=== PATIENT | male | born 1970 | race Two or more races ===

== ENCOUNTER 2021-08-21 16:32 | Inpatient (IN) | payer BC, OTHER ==
[~2021-08-21] VITALS: Ht 170.2 cm; Wt 124.7 kg
[2021-08-21] MEDS ORDERED: ENOXAPARIN SOD 100 MG/1 ML SYRINGE SC ONE (20:15)
[2021-08-21 21:00] LABS: Basophils # (auto) 0.1 10 ^3/uL (0-0.2); Basophils % (auto) 0.6 % (0.0-2.0); Eosinophils # (auto) 0.1 10 ^3/uL (0-0.8); Eosinophils % (auto) 0.8 % (0.0-7.0); Hemoglobin 16.5 g/dL (13.5-17.5); Lymphocytes % (auto) 22.3 % (10.0-50.0); Mean Corpuscular Hgb Conc. 33.6 g/dL (32.0-36.0); Mean Corpuscular Volume 86.3 fL (80.0-100.0); Monocytes # (auto) 1.2 10 ^3/uL (0-1.3); Monocytes % (auto) 8.7 % (0.0-12.0); Neutrophils # (auto) 9.1 10 ^3/uL (1.6-8.6); Neutrophils % (auto) 67.6 % (37.0-80.0); Nucleated Red Blood Cells % 0.7 %; Red Blood Cells 5.67 10^6/uL (4.5-5.90); Red Cell Distribution Width 12.4 % (11.8-14.3); White Blood Cell 13.5 10^3/uL (4.4-10.8)
[2021-08-21 21:05] LABS: Potassium 4.3 mmol/L (3.5-5.1)
[2021-08-21 21:11] LABS: Albumin 3.9 g/dL (3.4-5.0); BUN/Creatinine Ratio 17.4; Bilirubin, Total 0.4 mg/dL (0.2-1.0); Total Protein 8.8 g/dL (6.4-8.2)
[2021-08-22] MEDS ORDERED: ONDANSETRON HCL 4 MG/2 ML VIAL IV PRN (08:30)
[2021-08-22] MEDS ORDERED: MORPHINE SULFATE INJECTION 2 MG/ML SYRG IV PRN (08:30)
[2021-08-22] MEDS ORDERED: NIFEdipine ER 30 MG TAB PO ONE (08:30)
[2021-08-22] MEDS ORDERED: ACETAMINOPHEN 325 MG TAB PO PRN ×2 (08:30)
[2021-08-22] MEDS ORDERED: NITROGLYCERIN 0.4 MG SL TAB SL PRN (08:30)
[2021-08-22] MEDS ORDERED: HEPARIN SODIUM (PORCINE) 5000 UNITS/ML 1ML VIAL IV ONE (08:45)
[2021-08-22] MEDS ORDERED: HEPARIN DRIP/D5W 100UNITS/ML 250 ML IV SCH (09:00)
[2021-08-22 09:47] LABS: Basophils # (auto) 0.1 10 ^3/uL (0-0.2); Basophils % (auto) 0.6 % (0.0-2.0); Eosinophils # (auto) 0 10 ^3/uL (0-0.8); Eosinophils % (auto) 0.2 % (0.0-7.0); Hematocrit 46.8 % (41.0-53.0); Hemoglobin 15.7 g/dL (13.5-17.5); Lymphocytes # (auto) 2.1 10 ^3/uL (0.4-5.4); Lymphocytes % (auto) 18.3 % (10.0-50.0); Mean Corpuscular Hemoglobin 28.9 pg (28.0-32.0); Mean Corpuscular Hgb Conc. 33.6 g/dL (32.0-36.0); Monocytes # (auto) 0.7 10 ^3/uL (0-1.3); Monocytes % (auto) 5.9 % (0.0-12.0); Neutrophils # (auto) 8.5 10 ^3/uL (1.6-8.6); Nucleated Red Blood Cells % 0.1 %; Red Blood Cells 5.44 10^6/uL (4.5-5.90); Red Cell Distribution Width 12.9 % (11.8-14.3); White Blood Cell 11.3 10^3/uL (4.4-10.8)
[2021-08-22 11:15] LABS: INR 1.05 (0.9-1.15); Partial Thromboplastin Time 31.6 sec (23.6-33.0)
[2021-08-22 11:28] LABS: INR 1.06 (0.9-1.15)
[2021-08-22] MEDS ORDERED: METOPROLOL TARTRATE 50 MG TAB PO ONE (12:15)
[2021-08-22] MEDS ORDERED: IOHEXOL 350 MG/ML 100ML IJ ONE (12:32)
[2021-08-22] MEDS ORDERED: ENOXAPARIN SOD 100 MG/1 ML SYRINGE SC SCH (12:45)
[2021-08-22 15:00] VITALS: BP 137/83
[2021-08-22] MEDS: ENOXAPARIN SOD 120 MG/0.8 ML SYRINGE SC SCH ×2 (15:26→21:44)
[2021-08-22] MEDS: HYDROcodone-ACET 5/325MG TAB PO PRN (15:27)
[2021-08-22] MEDS ORDERED: METH100I IJ (17:22)
[2021-08-22] MEDS ORDERED: METH500T22 PO (17:22)
[2021-08-22] MEDS ORDERED: IBUP800T26 PO (17:22)
[2021-08-22] MEDS ORDERED: COLC0.6T56 GT (17:22)
[2021-08-22 20:00] VITALS: BP 113/71
[2021-08-22] MEDS: METOPROLOL TARTRATE 50 MG TAB PO SCH (21:44)
[2021-08-23 04:35] VITALS: BP 111/81
[2021-08-23 05:40] LABS: Basophils # (auto) 0.1 10 ^3/uL (0-0.2); Basophils % (auto) 0.6 % (0.0-2.0); Eosinophils # (auto) 0.1 10 ^3/uL (0-0.8); Eosinophils % (auto) 1.3 % (0.0-7.0); Hematocrit 44.7 % (41.0-53.0); Hemoglobin 15.5 g/dL (13.5-17.5); Lymphocytes # (auto) 2.8 10 ^3/uL (0.4-5.4); Mean Corpuscular Hemoglobin 29.9 pg (28.0-32.0); Mean Corpuscular Hgb Conc. 34.7 g/dL (32.0-36.0); Mean Corpuscular Volume 86.3 fL (80.0-100.0); Monocytes # (auto) 0.8 10 ^3/uL (0-1.3); Monocytes % (auto) 8.5 % (0.0-12.0); Neutrophils # (auto) 5.8 10 ^3/uL (1.6-8.6); Neutrophils % (auto) 60.6 % (37.0-80.0); Nucleated Red Blood Cells % 0.2 %; Red Blood Cells 5.18 10^6/uL (4.5-5.90); Red Cell Distribution Width 12.7 % (11.8-14.3); White Blood Cell 9.6 10^3/uL (4.4-10.8)
[2021-08-23 06:00] LABS: Potassium 4.1 mmol/L (3.5-5.1)
[2021-08-23 06:08] LABS: Albumin 3.4 g/dL (3.4-5.0); BUN/Creatinine Ratio 14.3; Bilirubin, Total 0.7 mg/dL (0.2-1.0); Calcium 9.3 mg/dL (8.5-10.1)
[2021-08-23 09:00] VITALS: BP 135/92
[2021-08-23] MEDS: METOPROLOL TARTRATE 50 MG TAB PO SCH ×2 (09:47→21:55)
[2021-08-23] MEDS: ENOXAPARIN SOD 120 MG/0.8 ML SYRINGE SC SCH ×2 (09:47→21:55)
[2021-08-23 13:00] VITALS: BP 121/84
[2021-08-23 17:00] VITALS: BP 130/82
[2021-08-23 21:00] VITALS: BP 102/62
[2021-08-24] MEDS: HYDROcodone-ACET 5/325MG TAB PO PRN ×3 (01:03→21:48)
[2021-08-24 05:37] VITALS: BP 119/75
[2021-08-24 09:36] VITALS: BP 144/69
[2021-08-24] MEDS: METOPROLOL TARTRATE 50 MG TAB PO SCH ×2 (10:06→21:31)
[2021-08-24] MEDS: ENOXAPARIN SOD 120 MG/0.8 ML SYRINGE SC SCH ×2 (10:06→21:31)
[2021-08-24] MEDS ORDERED: APIX5TAB PO ×2 (11:07→11:09)
[2021-08-24] MEDS ORDERED: HYDR-4798 PO (11:11)
[2021-08-24 14:33] VITALS: BP 140/78
[2021-08-24 16:50] VITALS: BP 119/78
[2021-08-24 20:57] VITALS: BP 147/84
[2021-08-24] MEDS ORDERED: PATIENTS OWN MEDICATION (ELIQUIS 10 MG) PO SCH (22:00)
[2021-08-25 06:00] VITALS: BP 161/90
[2021-08-25 09:00] VITALS: BP 117/84
[2021-08-25] MEDS: METOPROLOL TARTRATE 50 MG TAB PO SCH ×2 (09:40→21:38)
[2021-08-25] MEDS: ENOXAPARIN SOD 120 MG/0.8 ML SYRINGE SC SCH ×2 (09:41→21:37)
[2021-08-25 13:00] VITALS: BP 122/93
[2021-08-25 17:00] VITALS: BP 141/110
[2021-08-25] MEDS ORDERED: [UNRECOGNIZED DRUG - OTHER] IV SCH (17:00)
[2021-08-25] MEDS ORDERED: COLCHICINE 0.6 MG CAP PO ONE (17:15)
[2021-08-25] MEDS ORDERED: EPTIFIBATIDE INJ (2MG/ML) 10ML VIAL IV ONE (18:00)
[2021-08-25] MEDS: EPTIFIBATIDE DRIP(0.75MG/ML) 100 ML IV SCH ×2 (18:52→23:03)
[2021-08-25] MEDS: HYDROcodone-ACET 5/325MG TAB PO PRN (21:38)
[2021-08-25 22:00] VITALS: BP 143/77
[2021-08-25] MEDS: ceFAZolin 2 GM in D5W 5% 100 ML IV SCH (22:46)
[2021-08-26] MEDS: EPTIFIBATIDE DRIP(0.75MG/ML) 100 ML IV SCH ×3 (03:54→14:45)
[2021-08-26 05:00] VITALS: BP 130/79
[2021-08-26] MEDS: ceFAZolin 2 GM in D5W 5% 100 ML IV SCH ×4 (05:41→22:08)
[2021-08-26 09:00] VITALS: BP 122/76
[2021-08-26] MEDS: COLCHICINE 0.6 MG CAP PO SCH ×2 (10:00→22:09)
[2021-08-26] MEDS: METOPROLOL TARTRATE 50 MG TAB PO SCH ×2 (10:00→22:10)
[2021-08-26] MEDS: ENOXAPARIN SOD 120 MG/0.8 ML SYRINGE SC SCH ×2 (10:00→22:15)
[2021-08-26 13:00] VITALS: BP 106/73
[2021-08-26 17:00] VITALS: BP 138/101
[2021-08-26 22:00] VITALS: BP 111/70
[2021-08-27 05:00] VITALS: BP 115/76
[2021-08-27] MEDS: ceFAZolin 2 GM in D5W 5% 100 ML IV SCH ×3 (06:00→23:08)
[2021-08-27] MEDS: ENOXAPARIN SOD 120 MG/0.8 ML SYRINGE SC SCH ×2 (10:30→23:08)
[2021-08-27] MEDS: COLCHICINE 0.6 MG CAP PO SCH ×2 (10:30→23:08)
[2021-08-27] MEDS: METOPROLOL TARTRATE 50 MG TAB PO SCH ×2 (10:30→23:09)
[2021-08-27 10:33] VITALS: BP 125/79
[2021-08-27] MEDS ORDERED: ALLOPURINOL 300 MG TAB PO ONE (11:00)
[2021-08-27 14:53] VITALS: BP 110/72
[2021-08-27 16:46] VITALS: BP 110/86
[2021-08-27 22:00] VITALS: BP 122/77
[2021-08-28 05:00] VITALS: BP 118/84
[2021-08-28] MEDS: ceFAZolin 2 GM in D5W 5% 100 ML IV SCH ×3 (05:50→22:20)
[2021-08-28 08:00] VITALS: BP 132/91
[2021-08-28 09:00] VITALS: BP 132/91
[2021-08-28] MEDS: METOPROLOL TARTRATE 50 MG TAB PO SCH ×2 (09:31→22:21)
[2021-08-28] MEDS: ALLOPURINOL 300 MG TAB PO SCH (09:31)
[2021-08-28] MEDS: ENOXAPARIN SOD 120 MG/0.8 ML SYRINGE SC SCH (09:32)
[2021-08-28] MEDS: COLCHICINE 0.6 MG CAP PO SCH ×2 (09:32→22:20)
[2021-08-28 13:00] VITALS: BP 121/86
[2021-08-28 22:00] VITALS: BP 131/82
[2021-08-28] MEDS: APIXABAN 5 MG TAB PO SCH (22:21)
[2021-08-29 05:00] VITALS: BP 110/79
[2021-08-29] MEDS: ceFAZolin 2 GM in D5W 5% 100 ML IV SCH ×3 (06:08→21:13)
[2021-08-29 06:18] LABS: Basophils # (auto) 0.1 10 ^3/uL (0-0.2); Basophils % (auto) 0.6 % (0.0-2.0); Eosinophils # (auto) 0.2 10 ^3/uL (0-0.8); Eosinophils % (auto) 2.2 % (0.0-7.0); Hematocrit 46.2 % (41.0-53.0); Hemoglobin 15.7 g/dL (13.5-17.5); Lymphocytes # (auto) 2.9 10 ^3/uL (0.4-5.4); Lymphocytes % (auto) 33.1 % (10.0-50.0); Mean Corpuscular Hemoglobin 29.1 pg (28.0-32.0); Mean Corpuscular Hgb Conc. 33.9 g/dL (32.0-36.0); Mean Corpuscular Volume 85.9 fL (80.0-100.0); Monocytes # (auto) 0.6 10 ^3/uL (0-1.3); Monocytes % (auto) 6.6 % (0.0-12.0); Neutrophils % (auto) 57.5 % (37.0-80.0); Nucleated Red Blood Cells % 0.1 %; Red Blood Cells 5.38 10^6/uL (4.5-5.90); Red Cell Distribution Width 12.9 % (11.8-14.3); White Blood Cell 8.7 10^3/uL (4.4-10.8)
[2021-08-29 06:48] LABS: INR 1.05 (0.9-1.15)
[2021-08-29 09:00] VITALS: BP 114/84
[2021-08-29] MEDS: COLCHICINE 0.6 MG CAP PO SCH ×2 (09:35→21:13)
[2021-08-29] MEDS: ALLOPURINOL 300 MG TAB PO SCH (09:35)
[2021-08-29] MEDS: APIXABAN 5 MG TAB PO SCH ×2 (09:36→21:13)
[2021-08-29] MEDS: METOPROLOL TARTRATE 50 MG TAB PO SCH ×2 (09:36→21:26)
[2021-08-29 12:35] VITALS: BP 105/64
[2021-08-29 17:00] VITALS: BP 142/86
[2021-08-29 22:00] VITALS: BP 111/71
[2021-08-30 05:00] VITALS: BP 121/71
[2021-08-30] MEDS: ceFAZolin 2 GM in D5W 5% 100 ML IV SCH (05:21)
[2021-08-30 08:44] VITALS: BP 108/79
[2021-08-30] MEDS: COLCHICINE 0.6 MG CAP PO SCH (11:17)
[2021-08-30] MEDS: APIXABAN 5 MG TAB PO SCH (11:17)
[2021-08-30] MEDS: METOPROLOL TARTRATE 50 MG TAB PO SCH (11:23)
[2021-08-30] MEDS: ALLOPURINOL 300 MG TAB PO SCH (11:24)
[2021-08-30 13:00] VITALS: BP 112/80
[2021-08-30 14:26] VITALS: BP 112/80
[2021-09-04] MEDS ORDERED: APIXABAN 5 MG TAB PO SCH (22:00)
== END 2021-08-30 15:30 | disposition home or self-care (01) | DRG 299 ==
LOC: ER 16:32 → OVERFLOW 08-22 08:21 → WEST WING 08-22 13:11
PROVIDERS: ADMIT Internal Medicine; ATTEND Family Medicine
DX: I82.401 Acute embolism and thrombosis of unspecified deep veins of right lower extremity (principal); I26.99 Other pulmonary embolism without acute cor pulmonale; N17.9 Acute kidney failure, unspecified; Z68.41 Body mass index [BMI] 40.0-44.9, adult; D68.59 Other primary thrombophilia; D72.829 Elevated white blood cell count, unspecified; I10 Essential (primary) hypertension; M10.9 Gout, unspecified; R53.81 Other malaise; R53.83 Other fatigue; D35.00 Benign neoplasm of unspecified adrenal gland; E66.9 Obesity, unspecified; Z20.822 Contact with and (suspected) exposure to COVID-19; Z80.9 Family history of malignant neoplasm, unspecified; Z83.3 Family history of diabetes mellitus; Z87.442 Personal history of urinary calculi; Z90.49 Acquired absence of other specified parts of digestive tract
CPT/HCPCS: 36415; 71275; 73610; 80053; 84550; 85025; 85610; 85730; 87426; 93971; 96365; 96372; 96375; G0378; J0690; J7060

== ENCOUNTER 2021-10-23 11:19 | Emergency (ER) | payer BC ==
[~2021-10-23] VITALS: Ht 170.2 cm; Wt 120.2 kg
[~2021-10-23 11:19] MED LIST: APIX5TAB PO; COLC0.6T56 GT; HYDR-4798 PO; IBUP800T26 PO; METH500T22 PO
[2021-10-23 13:57] LABS: Basophils # (auto) 0.1 10 ^3/uL (0-0.2); Basophils % (auto) 1.5 % (0.0-2.0); Eosinophils # (auto) 0.1 10 ^3/uL (0-0.8); Eosinophils % (auto) 0.6 % (0.0-7.0); Hematocrit 45.7 % (41.0-53.0); Hemoglobin 15.6 g/dL (13.5-17.5); Lymphocytes # (auto) 1.6 10 ^3/uL (0.4-5.4); Mean Corpuscular Hemoglobin 29.4 pg (28.0-32.0); Mean Corpuscular Hgb Conc. 34.1 g/dL (32.0-36.0); Mean Corpuscular Volume 86.3 fL (80.0-100.0); Monocytes # (auto) 0.9 10 ^3/uL (0-1.3); Monocytes % (auto) 8.8 % (0.0-12.0); Neutrophils # (auto) 7.3 10 ^3/uL (1.6-8.6); Neutrophils % (auto) 73.1 % (37.0-80.0); Nucleated Red Blood Cells % 0.1 %; Red Blood Cells 5.29 10^6/uL (4.5-5.90); Red Cell Distribution Width 13.8 % (11.8-14.3)
[2021-10-23 16:30] VITALS: BP 132/82
[2021-10-23] MEDS ORDERED: HYDR-4902 PO (16:51)
== END 2021-10-23 17:18 | disposition home or self-care (01) ==
LOC: ER 11:19
DX: I82.401 Acute embolism and thrombosis of unspecified deep veins of right lower extremity (principal); R42 Dizziness and giddiness; R51.9 Headache, unspecified; M10.9 Gout, unspecified; E78.5 Hyperlipidemia, unspecified; Z90.89 Acquired absence of other organs
CPT/HCPCS: 36415; 73700; 85025; 85652; 93971

== ENCOUNTER 2021-11-15 14:21 | Emergency (ER) | payer BC ==
[~2021-11-15] VITALS: Ht 170.2 cm; Wt 121.1 kg
[~2021-11-15 14:21] MED LIST changes: +HYDR-4902 PO
[2021-11-15] MEDS ORDERED: SODIUM CHLORIDE 0.9% 1,000 ML IV ONE (15:30)
[2021-11-15 15:34] LABS: Urine Bacteria NONE SEEN /hpf (None Seen); Urine Blood 3+ /uL (Negative); Urine Mucus FEW (None Seen); Urine Specific Gravity 1.022 (1.001-1.035); Urine WBC 694 /hpf (0 - 3); Urine WBC Clumps PRESENT /hpf (None Seen)
[2021-11-15 15:39] LABS: Basophils # (auto) 0.1 10 ^3/uL (0-0.2); Basophils % (auto) 0.8 % (0.0-2.0); Eosinophils # (auto) 0.1 10 ^3/uL (0-0.8); Eosinophils % (auto) 1.3 % (0.0-7.0); Hematocrit 45.8 % (41.0-53.0); Hemoglobin 15.5 g/dL (13.5-17.5); Lymphocytes # (auto) 1.7 10 ^3/uL (0.4-5.4); Lymphocytes % (auto) 24.1 % (10.0-50.0); Mean Corpuscular Hemoglobin 28.7 pg (28.0-32.0); Mean Corpuscular Hgb Conc. 33.9 g/dL (32.0-36.0); Mean Corpuscular Volume 84.6 fL (80.0-100.0); Monocytes # (auto) 0.6 10 ^3/uL (0-1.3); Monocytes % (auto) 8.6 % (0.0-12.0); Neutrophils # (auto) 4.7 10 ^3/uL (1.6-8.6); Neutrophils % (auto) 65.2 % (37.0-80.0); Nucleated Red Blood Cells % 0.2 %; Red Blood Cells 5.41 10^6/uL (4.5-5.90); White Blood Cell 7.2 10^3/uL (4.4-10.8)
[2021-11-15 15:53] LABS: Albumin 3.7 g/dL (3.4-5.0); Calcium 9.6 mg/dL (8.5-10.1); Potassium 4.3 mmol/L (3.5-5.1)
[2021-11-15 15:57] LABS: BUN/Creatinine Ratio 13.2; Bilirubin, Total 0.4 mg/dL (0.2-1.0); Total Protein 8.5 g/dL (6.4-8.2)
[2021-11-15] MEDS ORDERED: cefTRIAXone 1GM/50ML D5W 50 ML IV ONE (16:00)
[2021-11-15 16:09] LABS: INR 1.05 (0.9-1.15); Partial Thromboplastin Time 29.3 sec (23.6-33.0)
[2021-11-15 16:35] VITALS: BP 118/85
[2021-11-15] MEDS ORDERED: CIPR-173 PO (16:46)
[2021-11-15] MEDS ORDERED: TAM04C PO (16:46)
== END 2021-11-15 16:50 | disposition home or self-care (01) ==
LOC: ER 14:21
DX: N20.0 Calculus of kidney (principal); N39.0 Urinary tract infection, site not specified
CPT/HCPCS: 36415; 74176; 80053; 81001; 85025; 85610; 85730; 96365; 99284; J0696; J7030

== ENCOUNTER 2021-11-30 20:58 | Emergency (ER) | payer BC ==
[~2021-11-30] VITALS: Ht 170.2 cm; Wt 121.1 kg
[~2021-11-30 20:58] MED LIST changes: +CIPR-173 PO; +TAM04C PO
[2021-11-30] MEDS ORDERED: IOHEXOL 350 MG/ML 100ML IJ ONE (21:33)
[2021-11-30 22:56] LABS: Basophils # (auto) 0.1 10 ^3/uL (0-0.2); Basophils % (auto) 0.4 % (0.0-2.0); Eosinophils # (auto) 0.1 10 ^3/uL (0-0.8); Eosinophils % (auto) 0.9 % (0.0-7.0); Hematocrit 44.7 % (41.0-53.0); Lymphocytes # (auto) 1.8 10 ^3/uL (0.4-5.4); Lymphocytes % (auto) 15.7 % (10.0-50.0); Mean Corpuscular Hgb Conc. 33.6 g/dL (32.0-36.0); Mean Corpuscular Volume 86.3 fL (80.0-100.0); Monocytes % (auto) 8.4 % (0.0-12.0); Neutrophils # (auto) 8.6 10 ^3/uL (1.6-8.6); Neutrophils % (auto) 74.6 % (37.0-80.0); Nucleated Red Blood Cells % 0.6 %; Red Blood Cells 5.18 10^6/uL (4.5-5.90); Red Cell Distribution Width 14.2 % (11.8-14.3); White Blood Cell 11.6 10^3/uL (4.4-10.8)
[2021-11-30 23:17] LABS: BUN/Creatinine Ratio 11.8; Calcium 9.3 mg/dL (8.5-10.1); Potassium 4.1 mmol/L (3.5-5.1)
[2021-12-01 00:04] VITALS: BP 121/90
[2021-12-01 00:06] LABS: INR 1.06 (0.9-1.15); Partial Thromboplastin Time 34.1 sec (23.6-33.0)
== END 2021-12-01 00:07 | disposition home or self-care (01) ==
LOC: ER 21:02
DX: S83.92XA Sprain of unspecified site of left knee, initial encounter (principal); I82.4Z1 Acute embolism and thrombosis of unspecified deep veins of right distal lower extremity; M10.9 Gout, unspecified; E78.5 Hyperlipidemia, unspecified; Z90.89 Acquired absence of other organs; X58.XXXA Exposure to other specified factors, initial encounter; Y93.89 Activity, other specified; Y92.89 Other specified places as the place of occurrence of the external cause; Y99.8 Other external cause status
CPT/HCPCS: 36415; 71275; 80048; 85025; 85610; 85730; 93005; 93970; 99285; Q9967

== ENCOUNTER 2022-01-24 19:19 | Emergency (ER) | payer BC ==
[~2022-01-24] VITALS: Ht 167.6 cm; Wt 117.9 kg
[2022-01-24] MEDS ORDERED: SODIUM CHLORIDE 0.9% 1,000 ML IVB ONE (20:45)
[2022-01-24 22:15] LABS: Basophils # (auto) 0.1 10 ^3/uL (0-0.2); Basophils % (auto) 1.3 % (0.0-2.0); Eosinophils # (auto) 0.1 10 ^3/uL (0-0.8); Eosinophils % (auto) 0.9 % (0.0-7.0); Hematocrit 40.3 % (41.0-53.0); Hemoglobin 13.9 g/dL (13.5-17.5); Lymphocytes # (auto) 1.1 10 ^3/uL (0.4-5.4); Lymphocytes % (auto) 11.3 % (10.0-50.0); Mean Corpuscular Hemoglobin 29.2 pg (28.0-32.0); Mean Corpuscular Hgb Conc. 34.6 g/dL (32.0-36.0); Mean Corpuscular Volume 84.4 fL (80.0-100.0); Monocytes # (auto) 0.7 10 ^3/uL (0-1.3); Monocytes % (auto) 7.6 % (0.0-12.0); Neutrophils # (auto) 7.7 10 ^3/uL (1.6-8.6); Neutrophils % (auto) 78.9 % (37.0-80.0); Red Blood Cells 4.77 10^6/uL (4.5-5.90); Red Cell Distribution Width 13.9 % (11.8-14.3); White Blood Cell 9.7 10^3/uL (4.4-10.8)
[2022-01-24 22:38] LABS: Albumin 3.5 g/dL (3.4-5.0); BUN/Creatinine Ratio 9.4; Calcium 9.1 mg/dL (8.5-10.1); Potassium 4.4 mmol/L (3.5-5.1)
[2022-01-24 22:41] LABS: Bilirubin, Total 0.4 mg/dL (0.2-1.0)
[2022-01-24] MEDS ORDERED: PERCOT PO (22:44)
[2022-01-24] MEDS ORDERED: KETOROLAC TROMETH 30 MG/ML 1ML VIAL IM ONE (22:45)
[2022-01-25 01:21] VITALS: BP 153/100
== END 2022-01-25 01:25 | disposition home or self-care (01) ==
LOC: ER 19:19
DX: R10.9 Unspecified abdominal pain (principal); M10.9 Gout, unspecified; E78.5 Hyperlipidemia, unspecified; Z90.89 Acquired absence of other organs
CPT/HCPCS: 36415; 74176; 80053; 83690; 84484; 85025; 93971; 96372; 99285; J1885